=== PATIENT | male | born 1985 | race Caucasian/White ===

== ENCOUNTER 2017-05-18 10:38 | Emergency (ER) | payer OTHER ==
[2017-05-18 10:48] VITALS: BP 147/99
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
== END 2017-05-18 12:19 | disposition home or self-care (01) ==
LOC: DL.ED 10:38
DX: S46.912A Strain of unspecified muscle, fascia and tendon at shoulder and upper arm level, left arm, initial encounter (principal); F17.210 Nicotine dependence, cigarettes, uncomplicated; Z98.890 Other specified postprocedural states; X58.XXXA Exposure to other specified factors, initial encounter
CPT/HCPCS: 73030-LT; 99284

== ENCOUNTER 2020-06-23 16:28 | Emergency (ER) | payer OTHER ==
[2020-06-23 17:01] VITALS: BP 155/81; PULSE 103
[2020-06-23] MEDS ORDERED: Diphtheria,Pertussis(Acell),Tetanus Vaccine 0.5 ML SDV IM ONE (17:05)
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
[2020-06-23] MEDS ORDERED: Acetaminophen 325 MG Tab PO ONE (18:19)
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
== END 2020-06-23 18:31 | disposition home or self-care (01) ==
LOC: DL.ED 16:28
DX: S62.011A Displaced fracture of distal pole of navicular [scaphoid] bone of right wrist, initial encounter for closed fracture (principal); S62.326A Displaced fracture of shaft of fifth metacarpal bone, right hand, initial encounter for closed fracture; S05.12XA Contusion of eyeball and orbital tissues, left eye, initial encounter; Z23 Encounter for immunization; V29.9XXA Motorcycle rider (driver) (passenger) injured in unspecified traffic accident, initial encounter
CPT/HCPCS: 70450; 70486; 72125; 73110; 90471; 90715; 99284; A9270

== ENCOUNTER 2023-07-25 22:42 | Emergency (ER) | payer OTHER ==
[2023-07-25] MEDS ORDERED: EPINEPHrine 1 MG/ML SDV ONE (22:45)
[2023-07-25 22:59] VITALS: BP 179/113; PULSE 93
[2023-07-25] MEDS ORDERED: Sodium Chloride 0.9% 10 ML Syringe FLUSH PRN (22:59)
[2023-07-25 23:06] LABS: BASOPHILS PERCENT AUTO 0.6 % (0.0-1.0); EOSINOPHILS PERCENT AUTO 2.5 % (1.0-3.0); HEMATOCRIT 44.4 % (40.0-54.0); HEMOGLOBIN 15.8 g/dL (14.0-18.0); LYMPHOCYTES PERCENT AUTO 27.5 % (20.5-50.1); MEAN CORPUSCULAR HEMOGLOBIN 31.7 pg (27.0-34.0); MEAN CORPUSCULAR HGB CONC 35.6 g/dL (33.0-35.0); MONOCYTES PERCENT AUTO 7.3 % (2-8); NEUTROPHILS PERCENT AUTO 62.1 % (42.2-75.2); PLATELET COUNT,PLT 341 10^3/uL (150-450); RED BLOOD CELL COUNT 4.99 10^6/uL (4.6-6.2)
[2023-07-25 23:22] LABS: A/G RATIO 1.2; ALBUMIN 4.4 g/dL (3.4-5.0); ANION GAP 14.1 mEq/L (7-13); BILIRUBIN TOTAL 0.4 mg/dL (0.2-1.0); BUN/CREATININE RATIO 12.4 (No establ ref range); C-REACTIVE PROTEIN 0.21 ng/dL (<=0.30); CALCIUM 9.4 mg/dL (8.5-10.1); CREATININE 0.89 mg/dL (0.70-1.30); EST CRCL DRUG DOSING (CG) 129.68 mL/min; MAGNESIUM 1.9 mg/dL (1.8-2.4); POTASSIUM,K 3.1 mmol/L (3.5-5.1)
== END 2023-07-26 01:11 | disposition home or self-care (01) ==
LOC: DL.ED 22:42
DX: L23.89 Allergic contact dermatitis due to other agents (principal); I16.0 Hypertensive urgency
CPT/HCPCS: 36415; 80053; 83735; 85025; 86140; 99283; J3490

== ENCOUNTER 2024-04-29 11:23 | Emergency (ER) | payer BC, MEDICAID ==
[2024-04-29 12:08] VITALS: BP 137/100; PULSE 92
[2024-04-29] MEDS: Lidocaine 1% 30 ML SDV INJECT ONE (12:30)
[2024-04-29] MEDS: Bacitracin Oint 1 GM U/D Packet TOP ONE (12:51)
== END 2024-04-29 12:54 | disposition home or self-care (01) ==
LOC: DL.ED 11:23
DX: S60.852A Superficial foreign body of left wrist, initial encounter (principal); Z79.899 Other long term (current) drug therapy; W29.4XXA Contact with nail gun, initial encounter
CPT/HCPCS: 73110-LT; 99283; 99284; A9270-GY; J3490

== ENCOUNTER 2025-04-04 13:29 | Emergency (ER) | payer BC, MEDICAID, OTHER ==
[2025-04-04 13:52] VITALS: BP 128/78; PULSE 86
== END 2025-04-04 14:09 | disposition home or self-care (01) ==
LOC: DL.ED 13:29
DX: Z79.899 Other long term (current) drug therapy (principal)
CPT/HCPCS: 99282; 99283